=== PATIENT | female | born 1965 | race Caucasian/White ===

== ENCOUNTER 2018-10-11 04:28 | Emergency (ER) | payer OTHER ==
[2018-10-11 04:36] VITALS: BP 139/84
[2018-10-11] MEDS ORDERED: HYDROCODONE/ACETAMINOPHEN 5-325 MG (6 TAB/ER DISP) PO PRN (05:07)
[2018-10-11] MEDS ORDERED: TRIAMCINOLONE ACETONIDE 0.1% OINT 15 GM TOP ONE (05:19)
[2018-10-11] MEDS ORDERED: OXYCODONE-ACETAMINOPHEN 5-325 MG TABLET PO ONE (05:21)
--- NOTE | 2018-10-11 05:36 | ER Document Report ---
ED General - General Chief Complaint: Skin Problem Stated Complaint: BODY PAIN Time Seen by Provider: 10/11/18 05:06 TRAVEL OUTSIDE OF THE U.S. IN LAST 30 DAYS: No - HPI Patient complains to provider of: HS and eczema out of control Notes: 52-year-old smoker with a long history of hydradenitis suppurativa visiting from [place] presents to the emergency department with a flare up of her HS and eczema in the left axilla. She states it has been ongoing but she is out of pain meds and creams for her eczema. Previous surgery for age as in the right axilla. States it was well controlled and recently had a flareup. Her patient the only thing that works is Percocet. She endorses this is a typical flareup. Patient denies fever, chills, any other constitutional symptoms, nausea, vomiting, any other flareups. Past Medical History - General Information source: Patient - Social History Smoking Status: Current Every Day Smoker Family History: Reviewed & Not Pertinent Patient has suicidal ideation: No Patient has homicidal ideation: No Renal/ Medical History: Denies: Hx Peritoneal Dialysis Review of Systems - Review of Systems Constitutional: No symptoms reported EENT: No symptoms reported Cardiovascular: No symptoms reported Respiratory: No symptoms reported Gastrointestinal: No symptoms reported Genitourinary: No symptoms reported Female Genitourinary: No symptoms reported Musculoskeletal: No symptoms reported Skin: No symptoms reported Hematologic/Lymphatic: No symptoms reported Neurological/Psychological: No symptoms reported Physical Exam - Vital signs Vitals: Temp Pulse Resp BP Pulse Ox 98.1 F 88 17 139/84 H 98 10/11/18 04:34 10/11/18 04:34 10/11/18 04:34 10/11/18 04:34 10/11/18 04:34 Interpretation: Normal - General General appearance: Appears well, Alert - HEENT Head: Normocephalic, Atraumatic Eyes: Normal Pupils: PERRL - Respiratory Respiratory status: No respiratory distress Chest status: Nontender Breath sounds: Normal Chest palpation: Normal - Cardiovascular Rhythm: Regular Heart sounds: Normal auscultation Murmur: No - Abdominal Inspection: Normal Distension: No distension Bowel sounds: Normal Tenderness: Nontender Organomegaly: No organomegaly - Back Back: Normal, Nontender - Extremities General upper extremity: Normal inspection, Nontender, Normal color, Normal ROM , Normal temperature General lower extremity: Normal inspection, Nontender, Normal color, Normal ROM , Normal temperature, Normal weight bearing. No: Lala's sign - Neurological Neuro grossly intact: Yes Cognition: Normal Orientation: AAOx4 Kathleen Coma Scale Eye Opening: Spontaneous [place] Coma Scale Verbal: Oriented [place] Coma Scale Motor: Obeys Commands [place] Coma Scale Total: 15 Speech: Normal Motor strength normal: LUE, RUE, LLE, RLE Sensory: Normal - Psychological Associated symptoms: Normal affect, Normal mood - Skin Skin Temperature: Warm Skin Moisture: Dry Skin Color: Normal Skin irregularity: Rash - Erythematous well demarcated rash consistent with eczema in left axilla. Several deep-seated inflamed nodules, no evidence of purulent drainage. Exquisitely tender to light touch. Irregularity with: Tenderness Course - Re-evaluation Re-evalutation: 10/11/18 05:36 Clarified with patient that this is a typical exacerbation for her. She endorses this to be true. Patient is visiting from [place] to see her boyfriend who is here for work. Looked her up on [facility] aware with no record of narcotic use, although her ZIP Code is in [place] and I do not have access to that system. I do believe that she does have severe pain as the at bedtime looks to be her early stage III and will treat her pain. Underlying it is a large area that is erythematous, scaly, consistent with him. I have prescribed her triamcinolone ointment 0.1% to use topically. It does not appear that the rash looks like cellulitis or is spreading. No lymphangitis or red streaks noted. - Vital Signs Vital signs: Temp Pulse Resp BP Pulse Ox 98.1 F 88 17 139/84 H 98 10/11/18 04:34 10/11/18 04:34 10/11/18 04:34 10/11/18 04:34 10/11/18 04:34 Discharge - Discharge Clinical Impression: Hidradenitis suppurativa of left axilla, Eczema Condition: Good Disposition: HOME, SELF-CARE Additional Instructions: You were seen in the emergency department today for pain control of your hidradenitis suppurativa. If you develop a fever, chills, your rash spreads, or you notice red streaks running down your arm or become very ill this could be sign of a systemic infection. Please immediately return to the emergency room. You were given a Dosepak of pain medication. Please use this medication sparingly and do not drive or operate machinery while taking it. Please use the ointment in the affected area 3 times per day. Prescriptions: Triamcinolone Acetonide [Triderm] 28.4 gm TP PRN PRN 30 Days #1 cream..g. PRN Reason:
== END 2018-10-11 06:05 | disposition home or self-care (01) ==
LOC: ER 04:28
DX: L73.2 Hidradenitis suppurativa (principal); L30.9 Dermatitis, unspecified; F17.200 Nicotine dependence, unspecified, uncomplicated
CPT/HCPCS: 99282; J3490

== ENCOUNTER 2019-08-02 10:09 | Emergency (ER) | payer MEDICAID, OTHER ==
--- NOTE | 2019-08-02 10:56 | ER Document Report ---
ED Medical Screen (RME) - General Chief Complaint: Rash Stated Complaint: RASH Time Seen by Provider: 08/02/19 10:26 Notes: Patient is a 54-year-old female who presents to the emergency department with a chief complaint of left arm drainage. Patient reports she has been battling hidradenitis for years. Patient reports she has seen 27 doctors in the past year and no one has been able to help her out. Patient states she was on a clinical trial and was given Cosentyx which did seem to help with her symptoms. Patient reports she has had a rash for the past year underneath the left axilla. Patient reports in the past 6 weeks she has had significant yellow drainage and redness that is now extending into the left breast. Patient states she did take her last Percocet this morning. Patient recently moved here from [place] 6 weeks ago and does not have a primary care physician or a heel attacher. TRAVEL OUTSIDE OF THE U.S. IN LAST 30 DAYS: No - Related Data Allergies/Adverse Reactions: No Known Allergies Allergy (Verified 08/02/19 10:09) Past Medical History - Social History Chew tobacco use (# tins/day): No Frequency of alcohol use: None Drug Abuse: None - Past Medical History Cardiac Medical History: Reports: Hx Hypertension Renal/ Medical History: Denies: Hx Peritoneal Dialysis Physical Exam - Vital signs Vitals: Temp Pulse Resp BP Pulse Ox 98.5 F 111 H 15 120/52 L 100 08/02/19 10:12 08/02/19 10:12 08/02/19 10:12 08/02/19 10:12 08/02/19 10:12 - Skin Notes: Patient has open lesions underneath the left axilla that is draining a yellow purulent drainage. Patient does have a surrounding erythematous rash that extends into the breast. Course - Re-evaluation Re-evalutation: 08/02/19 10:56 Patient has significant hidradenitis with purulent drainage and a possible cellulitis that extends into the breast. Patient has been upgraded and she will need further management. - Vital Signs Vital signs: Temp Pulse Resp BP Pulse Ox 98.5 F 111 H 15 120/52 L 100 08/02/19 10:12 08/02/19 10:12 08/02/19 10:12 08/02/19 10:12 08/02/19 10:12
--- NOTE | 2019-08-02 11:31 | ER Document Report ---
ED Skin Rash/Insect Bite/Abscs - General Chief Complaint: Rash Stated Complaint: RASH Time Seen by Provider: 08/02/19 10:26 Primary Care Provider: [facility] [Provider Group] - Follow up as needed Mode of Arrival: Ambulatory Information source: Patient Notes: Patient presents complaining of skin rash to left axilla for the past year that is worsened over the past 6 months. Patient has a history of hidradenitis suppurativa and states that she is seen multiple specialist for this in the past and is currently taking antibiotics as well as Cosentyx to treat her symptoms. Patient recently relocated to this area and has not gotten established with a local primary or manager intern yet. Patient denies any fever TRAVEL OUTSIDE OF THE U.S. IN LAST 30 DAYS: No - HPI Patient complains to provider of: Skin rash/lesion, Tender/swollen area Onset: Other - 6 weeks Onset/Duration: Persistent Quality of pain: Achy Pain Level: 4 Skin Character: Drainage, Rash, Tenderness, Thickening Skin Temperature: Warm Quality of rash: Painful Exacerbated by: Movement Relieved by: Denies Similar symptoms previously: Yes Recently seen / treated by doctor: Yes - Related Data Allergies/Adverse Reactions: No Known Allergies Allergy (Verified 08/02/19 10:09) Past Medical History - General Information source: Patient - Social History Smoking Status: Current Every Day Smoker Chew tobacco use (# tins/day): No Smoking Education Provided: Yes Frequency of alcohol use: None Drug Abuse: None Lives with: Family Family History: Reviewed & Not Pertinent Patient has suicidal ideation: No Patient has homicidal ideation: No - Past Medical History Cardiac Medical History: Reports: Hx Hypertension Renal/ Medical History: Denies: Hx Peritoneal Dialysis Skin Medical History: Reports Other - Hidradenitis Past Surgical History: Reports: Other - Left axillary surgery for hidradenitis Review of Systems - Review of Systems Constitutional: No symptoms reported. denies: Fever, Recent illness EENT: No symptoms reported Cardiovascular: No symptoms reported. denies: Chest pain Respiratory: No symptoms reported Gastrointestinal: No symptoms reported Genitourinary: No symptoms reported Female Genitourinary: No symptoms reported Musculoskeletal: No symptoms reported Skin: Lesions, Rash Hematologic/Lymphatic: No symptoms reported Neurological/Psychological: No symptoms reported Physical Exam - Vital signs Vitals: Temp Pulse Resp BP Pulse Ox 98.5 F 111 H 15 120/52 L 100 09/15/19 10:12 08/02/19 10:12 08/02/19 10:12 08/02/19 10:12 08/02/19 10:12 - General General appearance: Appears well, Alert In distress: None - HEENT Head: Normocephalic, Atraumatic Eyes: Normal Conjunctiva: Normal Nasal: Normal Mouth/Lips: Normal Mucous membranes: Normal - Respiratory Respiratory status: No respiratory distress Chest status: Nontender Breath sounds: Normal. No: Rales, Rhonchi, Stridor, Wheezing Chest palpation: Normal - Cardiovascular Rhythm: Regular Heart sounds: S1 appreciated, S2 appreciated Murmur: No Pulses: Normal: Radial - Back Back: Normal, Nontender - Extremities General upper extremity: Tender - left axilla General lower extremity: Normal inspection, Normal strength - Neurological Neuro grossly intact: Yes Cognition: Normal Kathleen Coma Scale Eye Opening: Spontaneous Kathleen Coma Scale Verbal: Oriented Kathleen Coma Scale Motor: Obeys Commands [place] Coma Scale Total: 15 - Psychological Associated symptoms: Normal affect, Normal mood - Skin Skin Temperature: Warm Skin Moisture: Moist Skin Color: Erythema - Left axilla moist erythematous with Hernandez stage III to the axilla consistent with history of hidradenitis supurativa, patient with well demarcated border with scaling and flaking. Course - Re-evaluation Re-evalutation: 08/02/19 11:[address] Drew who agrees to come and examined patient. 08/02/19 11:40 Dr. Drew evaluated patient. Recommends cleansing the area with chlorhexidine and obtaining a wound culture. Does not recommend any change in antibiotics or any topical medications at this time. Recommends outpatient follow-up with dermatology and rheumatology. Does not feel patient is a surgical case at this time given the level of inflammation. Patient is requesting pain medication as she has run out of her chronic medication that she takes for this. - Vital Signs Vital signs: Temp Pulse Resp BP Pulse Ox 98.7 F 93 18 130/74 H 100 08/02/19 12:43 08/02/19 12:43 08/02/19 12:43 08/02/19 12:43 08/02/19 12:43 Discharge - Discharge Clinical Impression: Hidradenitis suppurativa of left axilla Condition: Stable Disposition: HOME, SELF-CARE Instructions: Oral Narcotic Medication ([facility]) Additional Instructions: Return immediately for any new or worsening symptoms Followup with your primary care provider, call tomorrow to make a followup appointment Follow-up with a manager intern for further management Keep area clean and dry, use chlorhexidine skin cleanser as directed Prescriptions: Oxycodone HCl/Acetaminophen [Percocet 5-325 mg Tablet] 1 tab PO ASDIR PRN #15 tablet PRN Reason: Forms: Smoking Cessation Education Referrals: [facility] [Provider Group] - Follow up as needed
[2019-08-02 12:44] VITALS: BP 130/74
--- NOTE | 2019-08-02 13:05 | PDOC CONSULTATION ---
Consultation Consult Date: 08/02/19 Attending physician:: LUCY ROBERTO Provider Consulted: ANA FISHER Consult reason:: Hidradenitis suppurativa exacerbation left axilla History of Present Illness Patient complains of: Left axillary pain and drainage History of Present Illness: JOSE NOLASCO is a 54 year old female Presents to the emergency department complaining of increased pain, drainage f rom her left axilla. She has a long 15+ year history of hidradenitis suppurativa involving axilla and groins bilaterally. 5 years ago she underwent wide excision of right axillary disease. She is from [place] visiting the area for the second time in 1 year. She was here in September 2018 with similar exacerbation. She is currently on Minocycline, and metformin, and Cosentyx under the care of clinical account executive. She may be relocating to this area and has been given the contact information for clinical account executive in [place]. She denies fever. She is a smoker. She feels excessive perspiration has led to the most recent exacerbation. Patient was evaluated in the emergency department, surgery was consulted. Past Medical History Past Medical History: COPD, chronic smoker, hidradenitis suppurativa Cardiac Medical History: Reports: Hypertension Past Surgical History Past Surgical History: Excision of right axillary hidradenitis suppurativa Social History Information Source: Patient Smoking Status: Current Every Day Smoker Frequency of Alcohol Use: Rare Hx Recreational Drug Use: No Family History Family History: None, Reviewed & Not Pertinent Parental Family History Reviewed: Yes Children Family History Reviewed: Yes Sibling(s) Family History Reviewed.: Yes Medication/Allergy Home Medications: Triamcinolone Acetonide [Triderm] 28.4 gm TP PRN PRN 30 Days #1 cream..g. 10/11/18 Oxycodone HCl/Acetaminophen [Percocet 5-325 mg Tablet] 1 tab PO ASDIR PRN #15 tablet 08/02/19 Allergies/Adverse Reactions: No Known Allergies Allergy (Verified 08/02/19 10:09) Review of Systems Constitutional: PRESENT: as per HPI Eyes: ABSENT: visual disturbances Ears: ABSENT: hearing changes Cardiovascular: ABSENT: chest pain, dyspnea on exertion, edema, orthropnea, palpitations Respiratory: PRESENT: cough Genitourinary: ABSENT: dysuria, hematuria Musculoskeletal: PRESENT: other - Decreased range of motion of the left arm secondary to hidradenitis. ABSENT: joint swelling Psychiatric: ABSENT: anxiety, depression, homidical ideation, suicidal ideation Physical Exam Vital Signs: Temp Pulse Resp BP Pulse Ox 98.7 F 93 18 130/74 H 100 08/02/19 12:43 08/02/19 12:43 08/02/19 12:43 08/02/19 12:43 08/02/19 12:43 Intake & Output 08/01/19 08/02/19 08/03/19 06:59 06:59 06:59 Weight 60.8 kg General appearance: PRESENT: no acute distress Head exam: PRESENT: normocephalic Eye exam: PRESENT: EOMI Mouth exam: PRESENT: dry mucosa Neck exam: PRESENT: full ROM Respiratory exam: PRESENT: rhonchi Cardiovascular exam: PRESENT: RRR Pulses: PRESENT: normal carotid pulses, normal radial pulses, normal femoral pulses Rectal exam: PRESENT: deferred Musculoskeletal exam: PRESENT: other - Right axilla examined; scar consistent with previous skin and soft tissue resection, well-healed; no active disease. Left axilla with very large 15 cm chronic erythematous plaque of skin involvement; centrally there are cracked, actively weeping areas, with redundant, pedunculated skin. There is no secondary infection, no foul smell. Threaded areas are actively draining however. There is restricted range of motion of the left upper extremity due to pain and chronic contracture Neurological exam: PRESENT: oriented to person, oriented to place, oriented to time, oriented to situation Focused psych exam: PRESENT: other - Affect appropriate Assessment & Plan - Diagnosis (1) Hidradenitis suppurativa of left axilla Is this a current diagnosis for this admission?: Yes Plan: Impression: Acute superimposed on chronic hidradenitis suppurativa of the left axilla; nothing to drain surgically; no evidence of secondary infection. Recommendations: 1. Local wound care with chlorhexidine scrub brush, dry gauze 2. Prior to washing today, culture wound. 3. Agree with plans to follow-up with clinical account executive in [facility] who has an interest in complex hidradenitis management. 4. Please reconsult surgery if clinically indicated. (2) Smoker Is this a current diagnosis for this admission?: Yes (3) Hypertension Is this a current diagnosis for this admission?: Yes
== END 2019-08-02 12:44 | disposition home or self-care (01) ==
LOC: ER 10:09
DX: L73.2 Hidradenitis suppurativa (principal); R21 Rash and other nonspecific skin eruption; Z79.899 Other long term (current) drug therapy; F17.200 Nicotine dependence, unspecified, uncomplicated; I10 Essential (primary) hypertension
CPT/HCPCS: 87070; 87075; 87077; 87205; 99283

== ENCOUNTER → 2020-11-24 | Day surgery (SDC) | payer MEDICARE, MEDICAID ==
[~2020-11-24] MED LIST: PROPOFOL INJ 200 MG/20 ML VIAL IV ONE
[2020-11-24 07:40] VITALS: BP 123/84
== END ==
LOC: END 07:16
PROVIDERS: ATTEND Internal Medicine Gastroenterology
DX: Z53.8 Procedure and treatment not carried out for other reasons (principal)
CPT/HCPCS: J2704